=== PATIENT | male | born 1990 | race Caucasian/White ===

== ENCOUNTER 2019-04-16 18:34 | Emergency (ER) | payer BC ==
[~2019-04-16] VITALS: Ht 182.9 cm; Wt 129.5 kg
[2019-04-16 18:54] VITALS: Ht 182.9 cm; Wt 129.5 kg
[2019-04-16] MEDS ORDERED: LISINOPRIL20 MG PO (18:55)
[2019-04-16] MEDS ORDERED: FISH OIL 1,0001 CA1 PO (18:56)
[2019-04-16 19:13] LABS: BASOPHILS 0.2 % (0-2); EOSINOPHILS 0.7 % (0-7); HEMATOCRIT 43.8 % (42.0-54.0); HEMOGLOBIN 15.1 g/dL (13.5-17.5); IMMATURE GRANULOCYTES 0.2 % (0-5); LYMPHOCYTES 24.1 % (15-50); MCHC 34.5 g/dL (31.0-37.0); MCV 92.8 fL (80.0-100.0); MEAN PLATELET VOLUME 9.1 fL (7.4-10.4); MONOCYTES 7.4 % (2-11); NEUTROPHILS 67.4 % (40-80); PLATELET COUNT 239 10x3/uL (130-400); RBC 4.72 10x6/uL (4.20-6.10); RDW 12.3 % (11.5-14.5); WBC 12.3 10x3/uL (4.8-10.8)
[2019-04-16 19:15] LABS: APPEARANCE CLEAR (CLEAR); BILIRUBIN NEGATIVE (NEGATIVE); COLOR STRAW (YELLOW); GLUCOSE NEGATIVE (NEGATIVE); KETONE NEGATIVE (NEGATIVE); NITRITE NEGATIVE (NEGATIVE); PROTEIN NEGATIVE (NEGATIVE); UROBILINOGEN NORMAL (NORMAL)
[2019-04-16 19:31] LABS: CALC OSMOLALITY 284 mosm/kg (275-300); CALCIUM 8.9 mg/dL (8.5-10.1); CARBON DIOXIDE 27.6 mmol/L (21.0-32.0); CHLORIDE - SERUM 105 mmol/L (98-107); GLUCOSE 172 mg/dL (74-106); POTASSIUM - SERUM 3.9 mmol/L (3.5-5.1); SODIUM 141 mmol/L (136-145); UREA NITROGEN 13 mg/dL (7-18); eGFR NON AFRICAN AMERICAN > 90 mL/min (90-120)
[2019-04-16 19:38] LABS: ALBUMIN 3.9 g/dL (3.4-5.0); ALKALINE PHOSPHATASE 70 U/L (46-116); ALT (SGPT) 74 U/L (10-68); AMYLASE - SERUM 57 U/L (25-115); BILIRUBIN - TOTAL 0.87 mg/dL (0.2-1.3); LIPASE 104 U/L (73-393); PROTEIN - SERUM 8.2 g/dL (6.4-8.2)
[2019-04-16 22:09] VITALS: BP 132/85
== END 2019-04-16 22:09 | disposition home or self-care (01) ==
LOC: D.ER 18:34
PROVIDERS: Family Medicine
DX: R10.2 Pelvic and perineal pain (principal); I10 Essential (primary) hypertension